=== PATIENT | male | born 1985 | race Caucasian/White ===

== ENCOUNTER → 2022-05-11 11:22 | Outpatient (CLI) | payer MEDICAID, SELFPAY | PROVIDERS: PCP Family Medicine; Visit Provider Urology | DX: Z01.812 Encounter for preprocedural laboratory examination (principal); Z20.822 Contact with and (suspected) exposure to COVID-19; Z30.2 Encounter for sterilization | CPT/HCPCS: C9803; U0003; U0005 ==

== ENCOUNTER 2022-05-14 10:06 | Day surgery (SDC) | payer MEDICAID, SELFPAY ==
[2022-05-14 10:15] VITALS: BP 140/78; PULSE 100; RESP 20; O2SAT 99; BMI 32.3
[2022-05-14 11:12] VITALS: BP 122/72; PULSE 62; RESP 18; TEMP 36.2; O2SAT 98
[2022-05-14 11:25] VITALS: BP 122/72; PULSE 62; RESP 18; O2SAT 98
--- NOTE | 2022-05-14 12:06 | [facility].OPNOTE ---
Date of procedure: 05/14/22 Pre-op Diagnosis:: Sterilization Post-op Diagnosis:: Sterilization Procedure performed:: Vasectomy Surgeon:: Ace Cochran MD Anesthesia: local Estimated blood loss (mL): 2 Clinical Note:: 36-year-old white male previously seen for vasectomy consultation presents for the procedure today under a local anesthetic. Operative findings:: Exam reveals normal scrotum and testicles. The vasa were palpable bilaterally. Operative note:: Patient taken to the vasectomy suite after informed consent was obtained. On the stretcher he was prepped and draped in the standard surgical fashion. Scrotal and testicular examination within normal limits. Scrotum was a bit tight today. The left vas was identified and brought up to the midline raphae. Local anesthetic was placed under the skin and around the left vas. Incision was then made in the midline raphae and the vas was clamped and brought up through the incision. The vasal sheath was incised and the vas proper was dissected from its surrounding adventitial and vascular tissue. 1 clip was placed distally and 2 clips proximally. A 1 cm segment excised and the basal lumen was cauterized. Hemostasis achieved and the vas dropped back into the left hemiscrotum. The right vas was brought up through the same incision and local anesthetic placed around the vas. The identical procedure was performed on the right as previously dictated on the left. The right vas was dropped back into the hemiscrotum after hemostasis achieved. 3-0 chromic in the horizontal mattress fashion was placed. Compression dressing applied. Patient tolerated procedure well no complications. Condition: stable Disposition: same day Specimens:: Segments were removed but not sent to pathology Complications:: None
== END 2022-05-14 11:25 | disposition home or self-care (01) ==
LOC: OUTP 10:07
PROVIDERS: PCP Family Medicine; Visit Provider Urology
PROC: (CPT 55250; principal; 2022-05-14 11:00)
DX: Z30.2 Encounter for sterilization (principal)
CPT/HCPCS: 55250